=== PATIENT | male | born 1980 | race Caucasian/White ===

== ENCOUNTER 2017-02-05 06:39 | Emergency (ER) | payer BC ==
[~2017-02-05] VITALS: Ht 185.4 cm; Wt 83.1 kg
[~2017-02-05 06:39] MED LIST: LIDOCAINE700 MG TD; NOHOMEMEDS; PERCOCET 5/31 TABLET PO; SKELAXIN400 M1 PO; TRAMADOL HCL50 MG PO
[2017-02-05] MEDS ORDERED: ULTRAM50 MG PO (07:42)
[2017-02-05] MEDS ORDERED: VALIUM5 MG PO (07:42)
[2017-02-05 07:56] VITALS: BP 122/99
== END 2017-02-05 07:56 | disposition home or self-care (01) ==
LOC: EME 06:39
DX: S16.1XXA Strain of muscle, fascia and tendon at neck level, initial encounter (principal); M25.512 Pain in left shoulder; X58.XXXA Exposure to other specified factors, initial encounter; F17.200 Nicotine dependence, unspecified, uncomplicated
CPT/HCPCS: 99281; 99284; J1885

== ENCOUNTER 2017-05-21 12:38 | Emergency (ER) | payer OTHER ==
[~2017-05-21] VITALS: Ht 185.4 cm; Wt 80.5 kg
[~2017-05-21 12:38] MED LIST changes: +ULTRAM50 MG PO; +VALIUM5 MG PO
[2017-05-21 12:41] VITALS: BP 131/88
[2017-05-21 14:00] LABS: BASOPHIL COUNT 0.1 K/uL (0-0.1); EOSINOPHIL (%) 1.5 % (0-5); EOSINOPHIL COUNT 0.1 K/uL (0-0.3); HEMATOCRIT 44.3 % (38.0-50.0); IMMATURE GRANULOCYTE (%) 0.4 % (0.0-0.7); INSTRUMENT ABS NEUTROPHIL CT 6.5 K/uL; LYMPHOCYTE COUNT 1.8 K/uL (1.0-2.8); MCH 28.5 PG (29.0-34.0); MCHC 34.8 G/DL (30.0-36.0); MEAN PLAT.VOLUME 10.3 uM^3 (9.0-12.4); MONOCYTE (%) 6.7 % (3-12); MONOCYTE COUNT 0.6 K/uL (0-0.8); NEUTROPHIL (%) 70.4 % (45-76); NEUTROPHIL COUNT 6.5 K/uL (1.8-6.4); PLATELET COUNT 275 K/uL (156-360); RBC DIS.WIDTH-CV 12.4 % (11.8-14.6); RBC DIS.WIDTH-SD 37.2 % (39-53); WHITE BLOOD COUNT 9.2 K/uL (4.1-10.2)
[2017-05-21 14:10] LABS: CHLORIDE 105 mEq/L (99-109); POTASSIUM 4.3 mEq/L (3.7-5.4); SODIUM 139 mEq/L (136-147)
[2017-05-21 14:12] LABS: GLUCOSE 109 mg/dL (70-99)
[2017-05-21 14:13] LABS: ANION GAP 11 MEQ/L (2-14)
[2017-05-21 14:15] LABS: SERUM ETHYL ALCOHOL < 10 mg/dL
[2017-05-21 14:16] LABS: GFR ESTIMATE (CALCULATED) > 59 mL/min/
[2017-05-21 14:17] LABS: UREA NITROGEN (BUN) 12 mg/dL (9-23)
[2017-05-21] MEDS ORDERED: CATAPRES0.1 MG PO (14:55)
[2017-05-21] MEDS ORDERED: TRAZODONE HCL50 MG PO (14:55)
== END 2017-05-21 14:56 | disposition home or self-care (01) ==
LOC: EME 12:38
PROVIDERS: Emergency Medicine
DX: F11.20 Opioid dependence, uncomplicated (principal); R52 Pain, unspecified; R11.2 Nausea with vomiting, unspecified; R19.7 Diarrhea, unspecified; F17.200 Nicotine dependence, unspecified, uncomplicated; E78.5 Hyperlipidemia, unspecified
CPT/HCPCS: 80048; 81003; 85025; 90839; 99281; 99283; G0480

== ENCOUNTER 2018-04-29 02:52 | Emergency (ER) | payer OTHER ==
[~2018-04-29] VITALS: Ht 185.4 cm; Wt 82.8 kg
[~2018-04-29 02:52] MED LIST changes: +CATAPRES0.1 MG PO; +TRAZODONE HCL50 MG PO
[2018-04-29] MEDS ORDERED: ACULAR 0.5100 DROP/5 BOTH EYES (03:38)
[2018-04-29 03:50] VITALS: BP 130/86
== END 2018-04-29 03:50 | disposition home or self-care (01) ==
LOC: EME 02:52
DX: H10.12 Acute atopic conjunctivitis, left eye (principal)
CPT/HCPCS: 99281; 99283

== ENCOUNTER 2018-06-26 11:27 | Emergency (ER) | payer OTHER ==
[~2018-06-26] VITALS: Ht 185.4 cm; Wt 81.7 kg
[~2018-06-26 11:27] MED LIST changes: +ACULAR 0.5100 DROP/5 BOTH EYES
[2018-06-26] MEDS ORDERED: ATARAX,VISTARIL50 MG PO (12:04)
[2018-06-26 12:21] VITALS: BP 132/92
== END 2018-06-26 12:22 | disposition home or self-care (01) ==
LOC: EME 11:27
DX: F41.9 Anxiety disorder, unspecified (principal); F11.10 Opioid abuse, uncomplicated; E78.5 Hyperlipidemia, unspecified; F17.200 Nicotine dependence, unspecified, uncomplicated
CPT/HCPCS: 99281; 99284; Q0177